=== PATIENT | male | born 1965 ===

== ENCOUNTER 2018-05-29 10:57 | Emergency (ER) | payer SELFPAY ==
[2018-05-29 11:19] VITALS: BP 105/63; PULSE 101; RESP 20; TEMP 98; O2SAT 98; BMI 24.9
[2018-05-29] MEDS ORDERED: Benzocaine/Menthol (Cepacol) Lozenge MT STA (11:27)
--- NOTE | 2018-05-29 11:35 | C.PDOC ---
History Of Present Illness 52 year old male, whose past medical history includes kidney stones, presents to the ED for evaluation of sore throat, nasal congestion and cough which began around 3 days ago. He also reports tactile fever. Otherwise, patient denies chest pain, shortness of breath, nausea, vomiting. Time Seen by Provider: 05/29/18 11:15 Chief Complaint (Nursing): ENT Problem History Per: Patient History/Exam Limitations: no limitations Onset/Duration Of Symptoms: Days (3) Current Symptoms Are (Timing): Still Present Location Of Pain: Throat Associated Symptoms: Fever, Sore Throat, Nasal Congestion. denies: Nausea, Vomiting Additional History Per: Patient Past Medical History Reviewed: Historical Data, Nursing Documentation, Vital Signs Vital Signs: Last Vital Signs Temp 98.0 F 05/29/18 11:05 Pulse 101 H 05/29/18 11:05 Resp 20 05/29/18 11:05 BP 105/63 05/29/18 11:05 Pulse Ox 98 05/29/18 11:05 - Medical History PMH: Kidney Stones Surgical History: No Surg Hx Family History: States: Unknown Family Hx - Social History Hx Alcohol Use: Yes Hx Substance Use: No - Immunization History Hx Tetanus Toxoid Vaccination: No Hx Influenza Vaccination: No Hx Pneumococcal Vaccination: No Review Of Systems Constitutional: Positive for: Fever ENT: Positive for: Nose Congestion, Throat Pain Cardiovascular: Negative for: Chest Pain Respiratory: Positive for: Cough. Negative for: Shortness of Breath Gastrointestinal: Negative for: Nausea, Vomiting Physical Exam - Physical Exam Appears: Non-toxic, No Acute Distress Skin: Normal Color, Warm, Dry Head: Atraumatic, Normacephalic Eye(s): bilateral: Normal Inspection Ear(s): Bilateral: Normal Nose: Normal, No Discharge Oral Mucosa: Moist Throat: Erythema (mild), No Exudate, No Other (uvula is midline ) Neck: Supple Chest: Symmetrical, No Deformity, No Tenderness Cardiovascular: Rhythm Regular, No Murmur Respiratory: Normal Breath Sounds, No Rales, No Rhonchi, No Wheezing Gastrointestinal/Abdominal: Soft, No Tenderness, No Guarding, No Rebound Extremity: Normal ROM, Capillary Refill (less than 2 seconds ), No Other (pitting edema ) Neurological/Psych: Oriented x3, Normal Speech, Normal Cognition ED Course And Treatment O2 Sat by Pulse Oximetry: 98 (on RA) Pulse Ox Interpretation: Normal Medical Decision Making Medical Decision Making: Impression: upper respiratory infection Plan: * Cepacol MT * Sudafed PO * Motrin PO * reassess and disposition Progress: Cepacol MT, Sudafed PO and Motrin PO given. On reassessment, patient is resting comfortably, showing no signs of distress and is stable for discharge. Patient is advised to follow up with his PMD/clinic within 1-2 days for further evaluation. Advised to return to the ED if symptoms persist or worsen. Disposition - Disposition Referrals: [facility] at [facility] [place] [Outside] [facility] at [facility] [Outside] [facility] at [place] [Outside] Disposition: HOME/ ROUTINE Disposition Time: 11:55 Condition: GOOD Additional Instructions: Follow up with medicine clinic or your PCP in a few days and take the medications as directed. Prescriptions: Benzocaine/Menthol [Cepacol Sore Throat] 1 nichole MM Q2 #10 nichole Ibuprofen [Motrin] 600 mg PO Q6 #20 tab Pseudoephedrine HCl [Sudafed] 30 mg PO Q6 #15 tablet Instructions: Viral Upper Respiratory Infection, Adult (DC) Forms: [employer] (Serbian) - Clinical Impression Clinical Impression: Upper respiratory infection - Scribe Statement The provider has reviewed the documentation as recorded by the Scribe (Milena Elias) Provider Attestation: All medical record entries made by the Scribe were at my direction and personally dictated by me. I have reviewed the chart and agree that the record accurately reflects my personal performance of the history, physical exam, medical decision making, and the department course for this patient. I have also personally directed, reviewed, and agree with the discharge instructions and disposition.
== END 2018-05-29 11:55 | disposition home or self-care (01) ==
LOC: C.ER 10:57
DX: J06.9 Acute upper respiratory infection, unspecified (principal)